=== PATIENT | female | born 1960 | race Caucasian/White ===

== ENCOUNTER → 2023-09-23 06:30 | Day surgery (SDC) | payer OTHER, SELFPAY | LOC: GI 06:30 | PROVIDERS: ATTENDING PHYSICIAN Internal Medicine Gastroenterology | DX: Z12.11 Encounter for screening for malignant neoplasm of colon (principal); D12.2 Benign neoplasm of ascending colon; D12.3 Benign neoplasm of transverse colon; K63.5 Polyp of colon; K64.8 Other hemorrhoids; Z86.010 Personal history of colon polyps | CPT/HCPCS: 45385; 88305 ==

== ENCOUNTER → 2023-10-08 07:45 | Outpatient (REF) | payer OTHER, SELFPAY | LOC: WDC 07:45 | PROVIDERS: ATTENDING PHYSICIAN Obstetrics & Gynecology Gynecology; FAMILY PHYSICIAN Physician Assistant Medical | DX: Z12.31 Encounter for screening mammogram for malignant neoplasm of breast (principal) | CPT/HCPCS: 77063; 77067 ==

== ENCOUNTER → 2024-10-10 07:25 | Outpatient (REF) | payer BC, SELFPAY | LOC: WDC 07:25 | PROVIDERS: ATTENDING PHYSICIAN Obstetrics & Gynecology Gynecology; FAMILY PHYSICIAN Physician Assistant Medical | DX: Z12.31 Encounter for screening mammogram for malignant neoplasm of breast (principal) | CPT/HCPCS: 77063; 77067 ==

== ENCOUNTER → 2025-01-30 14:15 | Outpatient (REF) | payer SELFPAY | LOC: HWRAD 14:15 | PROVIDERS: ATTENDING PHYSICIAN Physician Assistant Medical | DX: E78.2 Mixed hyperlipidemia (principal) | CPT/HCPCS: 75571 ==

== ENCOUNTER → 2025-02-27 12:45 | Outpatient (REF) | payer BC, SELFPAY | LOC: HWRCS 12:45 | PROVIDERS: ATTENDING PHYSICIAN Physician Assistant Medical | DX: I31.39 Other pericardial effusion (noninflammatory) (principal); R93.89 Abnormal findings on diagnostic imaging of other specified body structures | CPT/HCPCS: 93306 ==

== ENCOUNTER → 2025-02-28 15:07 | Outpatient (REF) | payer BC, SELFPAY | LOC: WDC 15:07 | PROVIDERS: ATTENDING PHYSICIAN Obstetrics & Gynecology Gynecology; FAMILY PHYSICIAN Physician Assistant Medical | DX: R92.2 Inconclusive mammogram (principal); Z80.3 Family history of malignant neoplasm of breast | CPT/HCPCS: 76641 ==